=== PATIENT | male | born 1970 | race Caucasian/White ===

== ENCOUNTER 2024-07-14 10:02 | Emergency (ER) | payer OTHER ==
[2024-07-14] MEDS ORDERED: Sodium Chloride 0.9% 10 ML Syringe FLUSH PRN (10:28)
[2024-07-14] MEDS: Sodium Chloride 0.9% 1,000 ML IV SCH ×2 (10:28→11:31)
[2024-07-14 10:59] LABS: BASOPHILS ABSOLUTE AUTO 0.1 x10-3/uL (0.0-0.3); EOSINOPHILS ABSOLUTE AUTO 0.3 x10-3/uL (0.0-0.6); EOSINOPHILS PERCENT AUTO 3.9 % (0.1-6.8); HEMATOCRIT 48.2 % (38.3-50.1); HEMOGLOBIN 16.2 g/dL (12.9-17.7); LYMPHOCYTES ABSOLUTE AUTO 1.1 x10-3/uL (0.5-4.5); LYMPHOCYTES PERCENT AUTO 12.2 % (15.8-45.3); MEAN CORPUSCULAR HEMOGLOBIN 27.2 pg (27.0-33.3); MEAN CORPUSCULAR HGB CONC 33.6 g/dL (28.7-35.3); MEAN CORPUSCULAR VOLUME 80.8 fL (80.8-98.7); MEAN PLATELET VOLUME 8.3 fL (6.7-11.0); MONOCYTES ABSOLUTE AUTO 0.9 x10-3/uL (0.0-1.2); MONOCYTES PERCENT AUTO 10.2 % (5.5-15.2); NEUTROPHILS ABSOLUTE AUTO 6.3 x10-3/uL (1.7-6.9); NEUTROPHILS PERCENT AUTO 72.7 % (40.3-71.8); PLATELET COUNT,PLT 319 x10(3)uL (117-477); RED CELL DISTRIBUTION WIDTH 17.4 % (12.4-15.0); WHITE BLOOD CELL COUNT,WBC 8.7 x10-3/uL (3.2-10.1)
[2024-07-14 11:11] LABS: TROPONIN I 8.4 pg/mL (4.0-60.3)
[2024-07-14 11:12] LABS: A/G RATIO 0.9; ALBUMIN 3.6 g/dL (3.5-5.2); ALKALINE PHOSPHATASE 229 IU/L (56-112); ASPARTATE AMNIOTRANSFERASE,AST 68 IU/L (5-25); BILIRUBIN TOTAL 1.2 mg/dL (0.1-1.3); BLOOD UREA NITROGEN,BUN 43 mg/dL (7-18); BUN/CREATININE RATIO 22.6 (9-20); CALCIUM 8.7 mg/dL (8.6-10.2); CARBON DIOXIDE,CO2 17 mmol/L (21-32); CHLORIDE,CL 97 mmol/L (100-110); CREATININE 1.9 mg/dL (0.70-1.30); EST CRCL DRUG DOSING (CG) 48.22 mL/min; ESTIMATED GFR 41 mL/min (>60); GLUCOSE RANDOM 102 mg/dL (80-116); POTASSIUM,K 4.5 mmol/L (3.5-5.3); PROTEIN TOTAL,TP 7.5 g/dL (6.0-8.0); RED BLOOD CELL COUNT 5.97 x10(6)uL (3.90-5.90); SODIUM,NA 128 mmol/L (135-145)
[2024-07-14 11:13] LABS: C-REACTIVE PROTEIN < 0.50 mg/dL (<0.50)
[2024-07-14 11:14] LABS: ALANINE AMINOTRANSFERASE,ALT 223 U/L (12-36)
[2024-07-14 14:05] LABS: BLOOD UREA NITROGEN,BUN 43 mg/dL (7-18); BUN/CREATININE RATIO 26.9 (9-20); CARBON DIOXIDE,CO2 18 mmol/L (21-32); CHLORIDE,CL 101 mmol/L (100-110); CREATININE 1.6 mg/dL (0.70-1.30); EST CRCL DRUG DOSING (CG) 57.26 mL/min; ESTIMATED GFR 51 mL/min (>60); GLUCOSE RANDOM 89 mg/dL (80-116); POTASSIUM,K 4.5 mmol/L (3.5-5.3); SODIUM,NA 131 mmol/L (135-145)
[2024-07-14] MEDS: Lactated Ringers 1,000 ML IV SCH (14:18)
[2024-07-14 15:51] LABS: BILIRUBIN,URINE SMALL (NEGATIVE); GLUCOSE,URINE NORMAL (NORMAL); KETONES,URINE NEGATIVE (NEGATIVE); LEUKOCYTE ESTERASE,URINE NEGATIVE (NEGATIVE); NITRITE,URINE NEGATIVE (NEGATIVE); OCCULT BLOOD,URINE NEGATIVE (NEGATIVE); PROTEIN,URINE NEGATIVE (NEGATIVE); UROBILINOGEN,URINE NORMAL (NEGATIVE)
[2024-07-14 15:53] LABS: APPEARANCE,URINE CLEAR (CLEAR); BACTERIA,URINE RARE (NS); COLOR,URINE YELLOW (YELLOW); RBC,URINE 0-5 (0-5); SQUAMOUS EPITHELIAL CELLS,UR OCCASIONAL (NS,R,O); WBC,URINE 0-5 (0-5)
== END 2024-07-14 18:10 | disposition home or self-care (01) ==
LOC: FB.ED 10:02
DX: I95.9 Hypotension, unspecified (principal); E87.1 Hypo-osmolality and hyponatremia; R53.1 Weakness; R53.83 Other fatigue; R06.00 Dyspnea, unspecified; Z79.899 Other long term (current) drug therapy; Z88.6 Allergy status to analgesic agent; Z88.8 Allergy status to other drugs, medicaments and biological substances; Z91.09 Other allergy status, other than to drugs and biological substances
CPT/HCPCS: 36415; 80048; 80053; 81001; 84484; 85025; 85379; 86140; 93005; 96360; 96361; 99285; J7030; J7120

== ENCOUNTER 2025-04-10 19:23 | Emergency (ER) | payer OTHER ==
[2025-04-10] MEDS ORDERED: Sodium Chloride 0.9% 10 ML Syringe FLUSH PRN (19:40)
[2025-04-10 19:57] LABS: MEAN CORPUSCULAR HEMOGLOBIN 34.6 pg (27.0-33.3); MEAN CORPUSCULAR HGB CONC 34.5 g/dL (28.7-35.3); MEAN CORPUSCULAR VOLUME 100.3 fL (80.8-98.7); MEAN PLATELET VOLUME 7.5 fL (6.7-11.0); PLATELET COUNT,PLT 123 x10(3)uL (117-477)
[2025-04-10 20:01] LABS: BLOOD UREA NITROGEN,BUN 13 mg/dL (7-18); BUN/CREATININE RATIO 10.8 (9-20); CARBON DIOXIDE,CO2 27 mmol/L (21-32); CHLORIDE,CL 105 mmol/L (100-110); CREATININE 1.2 mg/dL (0.70-1.30); EST CRCL DRUG DOSING (CG) 79.92 mL/min; ESTIMATED GFR 71 mL/min (>60); GLUCOSE RANDOM 94 mg/dL (80-116); POTASSIUM,K 3.9 mmol/L (3.5-5.3); SODIUM,NA 140 mmol/L (135-145)
[2025-04-10 20:07] LABS: A/G RATIO 0.9; ALANINE AMINOTRANSFERASE,ALT 52 U/L (12-36); ALBUMIN 2.7 g/dL (3.5-5.2); ALKALINE PHOSPHATASE 91 IU/L (56-112); ASPARTATE AMNIOTRANSFERASE,AST 39 IU/L (5-25); BILIRUBIN TOTAL 0.3 mg/dL (0.1-1.3); MAGNESIUM 1.7 mg/dL (1.8-2.5); PROTEIN TOTAL,TP 5.7 g/dL (6.0-8.0)
[2025-04-10 20:12] LABS: C-REACTIVE PROTEIN < 0.50 mg/dL (<0.50); TROPONIN I < 4.0 pg/mL (4.0-60.3)
[2025-04-10 20:13] LABS: WHITE BLOOD CELL COUNT,WBC 0.9 x10-3/uL (3.2-10.1)
[2025-04-10 20:27] LABS: ANISOCYTOSIS FEW; BASOPHILS PERCENT MAN 5 % (0-2); EOSINOPHILS PERCENT MAN 11 % (0-5); LYMPHOCYTES PERCENT MAN 43 % (13-37); MONOCYTES PERCENT MAN 28 % (4-12); POIKILOCYTOSIS OCCASIONAL; SEG NEUTROPHILS PERCENT MAN 13 % (46-82)
[2025-04-10] MEDS: Sodium Chloride 0.9% 1,000 ML IV ONE ×2 (20:44→21:56)
[2025-04-10 22:50] LABS: APPEARANCE,URINE CLEAR (CLEAR); BILIRUBIN,URINE NEGATIVE (NEGATIVE); COLOR,URINE YELLOW (YELLOW); GLUCOSE,URINE NORMAL (NORMAL); KETONES,URINE NEGATIVE (NEGATIVE); LEUKOCYTE ESTERASE,URINE NEGATIVE (NEGATIVE); NITRITE,URINE NEGATIVE (NEGATIVE); OCCULT BLOOD,URINE NEGATIVE (NEGATIVE); PROTEIN,URINE NEGATIVE (NEGATIVE); UROBILINOGEN,URINE 4 mg/dL (NEGATIVE)
[2025-04-11] MEDS: Cefepime 2 GM Vial IVPUSH ONE (00:06)
== END 2025-04-11 01:45 ==
LOC: FB.ED 19:23
DX: R55 Syncope and collapse (principal); S01.81XA Laceration without foreign body of other part of head, initial encounter; S01.21XA Laceration without foreign body of nose, initial encounter; I95.9 Hypotension, unspecified; D70.1 Agranulocytosis secondary to cancer chemotherapy; D64.9 Anemia, unspecified; E86.0 Dehydration; I48.91 Unspecified atrial fibrillation; E03.9 Hypothyroidism, unspecified; Z86.16 Personal history of COVID-19; Z79.899 Other long term (current) drug therapy; Z88.6 Allergy status to analgesic agent; Z88.8 Allergy status to other drugs, medicaments and biological substances; Z91.048 Other nonmedicinal substance allergy status; W19.XXXA Unspecified fall, initial encounter; Y92.009 Unspecified place in unspecified non-institutional (private) residence as the place of occurrence of the external cause
CPT/HCPCS: 36415; 70450; 72125; 80053; 81003; 83605; 83735; 84484; 85025; 86140; 87040; 87086; 93005; 93010; 96361; 96374; 99285; 99285-25; J0692; J7030